=== PATIENT | female | born 1960 | race Caucasian/White ===

== ENCOUNTER → 2016-12-02 | Outpatient (CLI) | payer BC ==
[~2016-12-02] MED LIST: CRDCD180 PO; CRG125 PO; IBUP-1459 PO; LINA1CAP PO; PANT40TA2 PO; RANI300T2 PO
--- NOTE | 2016-12-02 10:25 | DIAGNOSTIC IMAGING REPORT ---
ABDOMINAL ULTRASOUND COMPLETE HISTORY: Generalized abdominal pain.. COMPARISON: Abdominal ultrasound 12/12/2008. FINDINGS: Pancreas: The pancreas demonstrates a normal echotexture. Liver: The liver is echogenic consistent with fatty change. Gallbladder: No gallbladder wall thickening. This is 1.6 cm stone within the gallbladder neck. CBD: Distended up to 1.5 cm. Kidneys: Increase in size in the 4 cm cyst within the right kidney. No hydronephrosis. Spleen: Mildly enlarged measuring 13.4 centers in length. Aorta: Normal in caliber. IVC: Patent. IMPRESSION: 1. Distended common bile duct measuring 1.5 cm. This could represent an obstructing stone or occult obstructing lesion. Consider CT or MRI follow-up for further evaluation. 2. A 1.6 cm stone within the gallbladder neck. No gallbladder wall thickening at this time. 3. Increase in size in a 4 cm right renal cyst. 4. Mild splenomegaly. 5. Hepatic steatosis. Electronically signed by: Johan Mancia M.D. 12/02/2016 10:24 AM Dictated Date/Time: 12/02/2016 10:17 AM
[2016-12-02 10:30] LABS: BASO % 1.6 %; BASO ABS # 0.09 K/uL (0-0.2); COMPLETE YES; EOS % 5.2 %; HEMATOCRIT 40.9 % (37-47); IG% 0.4 %; LYMPH % 25.5 %; LYMPH ABS # 1.42 K/uL (1.2-3.4); MEAN CORPUSCULAR HEMOGLOBIN 28.5 pg (25-34); MEAN CORPUSCULAR HGB CONC 32.8 g/dl (32-36); MEAN PLATELET VOLUME 10.4 fL (7.4-10.4); MONO % 11.3 %; PLATELET COUNT 351 K/uL (130-400); WHITE BLOOD COUNT 5.57 K/uL (4.8-10.8)
[2016-12-02 10:49] LABS: ALT/SGPT 24 U/L (12-78); AMYLASE 37 U/L (25-115); BLOOD UREA NITROGEN 16 mg/dl (7-18); CALCIUM 9.1 mg/dl (8.5-10.1); CARBON DIOXIDE 29 mmol/L (21-32); CHLORIDE 109 mmol/L (98-107); CREATININE 0.87 mg/dl (0.60-1.20); GLUCOSE 105 mg/dl (70-99); POTASSIUM 4.2 mmol/L (3.5-5.1); SODIUM 143 mmol/L (136-145)
[2016-12-02 10:52] LABS: ALB/GLOB RATIO 1.1 (0.9-2); ALKALINE PHOSPHATASE 116 U/L (45-117); AST/SGOT 14 U/L (15-37)
--- NOTE | 2016-12-02 11:03 | DIAGNOSTIC IMAGING REPORT ---
DOUBLE CONTRAST UPPER GI SERIES CLINICAL HISTORY: Nausea. Gastroesophageal reflux disease. COMPARISON STUDY: Abdominal ultrasound dated 12/02/2016. TECHNIQUE: A standard air contrast upper GI series was performed. Spot images of the esophagus and stomach were obtained in multiple obliquities both upright and prone. FINDINGS: The patient swallowed barium without difficulty. The esophagus is structurally normal without evidence of intrinsic or extrinsic mass. The esophageal mucosal pattern is normal. No gastroesophageal reflux was elicited by having the patient perform the Valsalva maneuver. The gastroesophageal junction distends normally. There is a small sliding hiatal hernia. The stomach stomach is otherwise normal in configuration and demonstrates normal distensibility. No mass or ulceration is identified. There was no evidence of gastritis. The duodenal bulb and sweep are unremarkable. Tiny small bowel diverticula are suggested in the imaged jejunum. Fluoroscopy time: 2.2 minutes. Fluoroscopic images: 23 IMPRESSION: Small hiatal hernia. Otherwise unremarkable fluoroscopic upper GI assessment. Electronically signed by: Michael Escobar M.D. 12/02/2016 11:02 AM Dictated Date/Time: 12/02/2016 11:00 AM
== END | disposition home or self-care (01) ==
LOC: C.ULTR 09:16
PROVIDERS: ATTEND Physician Assistant
DX: R10.13 Epigastric pain (principal); R11.0 Nausea; K80.20 Calculus of gallbladder without cholecystitis without obstruction; N28.1 Cyst of kidney, acquired; K76.0 Fatty (change of) liver, not elsewhere classified

== ENCOUNTER → 2016-12-08 | Outpatient (CLI) | payer BC ==
--- NOTE | 2016-12-08 09:44 | DIAGNOSTIC IMAGING REPORT ---
ABDOMEN CT WITHOUT CONTRAST CT DOSE: 1066.62 mGy.cm HISTORY: PAIN UPPER ABDOMEN TECHNIQUE: Multiaxial CT images of the abdomen were performed without contrast. COMPARISON STUDY: Abdominal ultrasound 12/02/2016. FINDINGS: The lung bases are clear. No fractures within the visualized osseous structures. Evaluation for a mass is suboptimal due to the lack of intravenous contrast. However, the unenhanced liver, spleen, adrenal glands, and pancreas appear unremarkable. The common bile duct appears normal in caliber. There is a 1.8 cm gallstone within the body of the gallbladder. No gallbladder wall thickening. No evidence for gallstone at the neck of the gallbladder. No retroperitoneal lymphadenopathy. Residual barium within the colon. Multiple colonic diverticula. Normal appendix. No renal stones or hydronephrosis. A 3.7 cm hypodense lesion within the lower pole of the right kidney. This is incompletely characterize on this noncontrast study but favors a cyst. IMPRESSION: 1. Cholelithiasis. No gallbladder wall thickening. 2. Common bile duct appears to be normal in caliber. 3. Suboptimal evaluation for a pancreatic mass due to the lack of intravenous contrast. However, no definite masses identified. 4. A 3.7 cm right renal cyst. 5. Colonic diverticulosis. Electronically signed by: Johan Mancia M.D. 12/08/2016 9:43 AM Dictated Date/Time: 12/08/2016 9:28 AM
== END | disposition home or self-care (01) ==
LOC: C.CTS 08:24
PROVIDERS: ATTEND Physician Assistant
DX: R10.9 Unspecified abdominal pain (principal); R93.8 Abnormal findings on diagnostic imaging of other specified body structures; K80.20 Calculus of gallbladder without cholecystitis without obstruction; N28.1 Cyst of kidney, acquired; K57.92 Diverticulitis of intestine, part unspecified, without perforation or abscess without bleeding

== ENCOUNTER 2016-12-09 18:49 | Emergency (ER) | payer BC ==
[~2016-12-09] VITALS: Ht 162.6 cm; Wt 109.8 kg
[~2016-12-09 18:49] MED LIST changes: -CRG125 PO; -IBUP-1459 PO; -LINA1CAP PO; -PANT40TA2 PO; -RANI300T2 PO
[2016-12-09 18:51] VITALS: Ht 162.6 cm; Wt 109.8 kg
[2016-12-09] MEDS ORDERED: CRG125 PO (19:06)
[2016-12-09] MEDS ORDERED: LINA1CAP PO (19:06)
[2016-12-09] MEDS ORDERED: PANT40TA2 PO (19:06)
[2016-12-09] MEDS ORDERED: MoRPHine SULFATE 4 MG/ML 1 ML CARP\\VIAL IV STA (19:07)
[2016-12-09] MEDS ORDERED: ONDANSETRON INJ 2 MG/ML 2 ML VIAL IV STA (19:07)
[2016-12-09] MEDS ORDERED: IBUP-1459 PO (19:21)
[2016-12-09] MEDS ORDERED: RANI300T2 PO (19:21)
[2016-12-09 19:37] LABS: BASO % 0.4 %; BASO ABS # 0.06 K/uL (0-0.2); COMPLETE YES; EOS % 1.3 %; HEMATOCRIT 42.1 % (37-47); IG% 0.1 %; LYMPH ABS # 1.01 K/uL (1.2-3.4); MEAN CELL VOLUME 86.1 fL (80-100); MEAN CORPUSCULAR HEMOGLOBIN 28.8 pg (25-34); MEAN CORPUSCULAR HGB CONC 33.5 g/dl (32-36); MEAN PLATELET VOLUME 10.3 fL (7.4-10.4); MONO % 10.1 %; NEUT % 81.1 %; PLATELET COUNT 317 K/uL (130-400); RED BLOOD COUNT 4.89 M/uL (4.2-5.4); WHITE BLOOD COUNT 14.51 K/uL (4.8-10.8)
--- NOTE | 2016-12-09 20:04 | DIAGNOSTIC IMAGING REPORT ---
CHEST AND ABDOMEN 2 VIEWS HISTORY: Generalized abdominal pain. COMPARISON: Abdomen and pelvis CT 12/08/2016. FINDINGS: The lungs are clear. The heart is normal in size. Residual barium within multiple scattered colonic diverticula from the recent CT examination. Moderate stool seen within the proximal colon. No dilated loops of small bowel to suggest an obstruction. S-shaped scoliosis of the thoracolumbar spine. No pneumoperitoneum. No pneumatosis. No renal calculi. IMPRESSION: No acute cardiopulmonary process. No evidence for bowel obstruction. Moderate stool within the proximal colon. Electronically signed by: Johan Mancia M.D. 12/09/2016 8:03 PM Dictated Date/Time: 12/09/2016 8:01 PM
--- NOTE | 2016-12-09 20:22 | DIAGNOSTIC IMAGING REPORT ---
ABDOMINAL ULTRASOUND, RIGHT UPPER QUADRANT HISTORY: Right upper quadrant abdominal pain. eval for cholecystitis. COMPARISON: Abdominal ultrasound 12/02/2016. FINDINGS: Pancreas: The pancreas demonstrates a normal echotexture. Liver: The liver is echogenic consistent with fatty change. Gallbladder: A 2.5 cm gallstone. No gallbladder wall thickening. Negative sonographic Adams's sign. CBD: 4 mm. Right kidney: No hydronephrosis. A 3.6 cm cyst is again noted. IMPRESSION: 1. Cholelithiasis. No gallbladder wall thickening. 2. Normal caliber common bile duct. 3. Hepatic steatosis. Electronically signed by: Johan Mancia M.D. 12/09/2016 8:21 PM Dictated Date/Time: 12/09/2016 8:19 PM
[2016-12-09 20:23] LABS: BUN/CREATININE RATIO 13.4 (10-20); CREATININE 0.91 mg/dl (0.60-1.20)
[2016-12-09 20:39] LABS: POTASSIUM 4.2 mmol/L (3.5-5.1)
[2016-12-09 21:02] LABS: MANUAL MICROSCOPIC REQUIRED? YES; URINE APPEARANCE CLOUDY (CLEAR); URINE BILIRUBIN NEG (NEG); URINE COLOR YELLOW; URINE NITRITE NEG (NEG); URINE PH 5.5 (4.5-7.5); URINE SPECIFIC GRAVITY 1.025 (1.000-1.030); UROBILINOGEN NEG (NEG)
[2016-12-09 21:13] LABS: REVIEW REQ? NO
[2016-12-09 21:16] LABS: URINE RBC 0-4 /hpf (0-4)
[2016-12-09 21:18] LABS: URINE BACTERIA NEG (NEG); URINE WBC 0 /hpf (0-5)
[2016-12-09 21:19] LABS: URINE AMORPHOUS SEDIMENT PRESENT (NONE PRSENT)
[2016-12-09 22:00] VITALS: BP 152/93; PULSE 91; TEMP 37; O2SAT 98
--- NOTE | 2016-12-10 01:48 | EMERGENCY ROOM VISIT NOTE ---
History Report prepared by Jane: Lupe Gao Under the Supervision of: Dr. Alonso Aguirre M.D. First contact with patient: 18:57 Chief Complaint: ABDOMINAL PAIN Stated Complaint: ABD PAIN History of Present Illness The patient is a 56 year old female who presents to the Emergency Room with complaints of constant epigastric and lower abdominal pain since last night. The patient reports that she developed some nausea around Mother's Day a couple of weeks ago. Since then she has had intermittent lower abdominal pains for the past 2 weeks. Last night her pain worsened and it has been constant. She has epigastric pain that is worse with standing. The patient describes her pain as sharp and rates it as an 8/10 in severity. Her pain is not worsened after eating. She denies vomiting, fever, and urinary symptoms. The patient has been constipated for the past few days with the exception of some diarrhea yesterday morning that has resolved. She had a small bowel movement this morning. She had a CT scan of her abdomen yesterday and reports that her pain worsened after the scan. Source of History: patient Onset: a couple of weeks ago Position: abdomen Symptom Intensity: 8/10 Quality: sharp Timing: constant Modifying Factors (Worsening): other (standing) Associated Symptoms: No fevers, No vomiting, No urinary symptoms Note: Pt reports constipation. Review of Systems See HPI for pertinent positives & negatives. A total of 10 systems reviewed and were otherwise negative. Past Medical & Surgical Medical Problems: (1) Hypertension, uncontrolled Family History Heart disease Social History Smoking Status: Never Smoker Alcohol Use: none Marital Status: Housing Status: lives with family Occupation Status: employed Current/Historical Medications Scheduled Carvedilol (Carvedilol), 12.5 MG PO BID Linaclotide (Linzess), 145 MG PO DAILY Pantoprazole (Pantoprazole Sodium), 40 MG PO DAILY Ranitidine (Zantac), 300 MG PO HS Scheduled PRN Ibuprofen (Motrin), 400 MG PO Q6H PRN for Pain Allergies Coded Allergies: Aspirin (Unverified Allergy, Mild, 02/19/15) Physical Exam Vital Signs Date Time Temp Pulse Resp B/P (MAP) Pulse Ox O2 Delivery O2 Flow Rate FiO2 12/09/16 22:00 37.0 91 18 152/93 98 12/09/16 18:51 37.0 91 18 152/93 98 Room Air Physical Exam Constitutional: Vital signs reviewed. Eyes: Pupils are equal round reactive to light. Conjunctiva are noninjected. ENT: Pharynx is clear without erythema or exudate. Mucous membranes are moist. Neck supple without meningeal signs. Respiratory: Clear to auscultation bilaterally. Breath sounds are equal bilaterally. Cardiovascular: Regular rate and rhythm. No rubs or gallops. GI: Soft, nondistended. Epigastric and lower abdominal tenderness. No guarding, no Adams's. Bowel sounds are present. Musculoskeletal: No peripheral edema. No lower extremity tenderness. Integumentary: No cyanosis. Neurological: The patient is awake and alert. No focal deficits. Psychiatric: Normal affect. Medical Decision & Procedures ER Provider Diagnostic Interpretation: Radiology results as stated below per my review and the radiologist's interpretation: ABDOMINAL ULTRASOUND, RIGHT UPPER QUADRANT HISTORY: Right upper quadrant abdominal pain. eval for cholecystitis. COMPARISON: Abdominal ultrasound 12/02/2016. FINDINGS: Pancreas: The pancreas demonstrates a normal echotexture. Liver: The liver is echogenic consistent with fatty change. Gallbladder: A 2.5 cm gallstone. No gallbladder wall thickening. Negative sonographic Adams's sign. CBD: 4 mm. Right kidney: No hydronephrosis. A 3.6 cm cyst is again noted. IMPRESSION: 1. Cholelithiasis. No gallbladder wall thickening. 2. Normal caliber common bile duct. 3. Hepatic steatosis. Electronically signed by: Johan Mancia M.D. 12/09/2016 8:21 PM Dictated Date/Time: 12/09/2016 8:19 PM CHEST AND ABDOMEN 2 VIEWS HISTORY: Generalized abdominal pain. COMPARISON: Abdomen and pelvis CT 12/08/2016. FINDINGS: The lungs are clear. The heart is normal in size. Residual barium within multiple scattered colonic diverticula from the recent CT examination. Moderate stool seen within the proximal colon. No dilated loops of small bowel to suggest an obstruction. S-shaped scoliosis of the thoracolumbar spine. No pneumoperitoneum. No pneumatosis. No renal calculi. IMPRESSION: No acute cardiopulmonary process. No evidence for bowel obstruction. Moderate stool within the proximal colon. Electronically signed by: Johan Mancia M.D. 12/09/2016 8:03 PM Dictated Date/Time: 12/09/2016 8:01 PM Laboratory Results 12/09/16 19:30 Red Blood Count 4.89, Mean Corpuscular Volume 86.1, Mean Corpuscular Hemoglobin 28.8, Mean Corpuscular Hemoglobin Concent 33.5, Mean Platelet Volume 10.3, Neutrophils (%) (Auto) 81.1, Lymphocytes (%) (Auto) 7.0, Monocytes (%) (Auto) 10.1, Eosinophils (%) (Auto) 1.3, Basophils (%) (Auto) 0.4, Neutrophils # (Auto ) 11.76, Lymphocytes # (Auto) 1.01, Monocytes # (Auto) 1.47, Eosinophils # (Auto ) 0.19, Basophils # (Auto) 0.06 12/09/16 19:30 Test 12/09/16 19:30 White Blood Count 14.51 K/uL (4.8-10.8) Red Blood Count 4.89 M/uL (4.2-5.4) Hemoglobin 14.1 g/dL (12.0-16.0) Hematocrit 42.1 % (37-47) Mean Corpuscular Volume 86.1 fL (80-100) Mean Corpuscular Hemoglobin 28.8 pg (25-34) Mean Corpuscular Hemoglobin Concent 33.5 g/dl (32-36) Platelet Count 317 K/uL (130-400) Mean Platelet Volume 10.3 fL (7.4-10.4) Neutrophils (%) (Auto) 81.1 % Lymphocytes (%) (Auto) 7.0 % Monocytes (%) (Auto) 10.1 % Eosinophils (%) (Auto) 1.3 % Basophils (%) (Auto) 0.4 % Neutrophils # (Auto) 11.76 K/uL (1.4-6.5) Lymphocytes # (Auto) 1.01 K/uL (1.2-3.4) Monocytes # (Auto) 1.47 K/uL (0.11-0.59) Eosinophils # (Auto) 0.19 K/uL (0-0.5) Basophils # (Auto) 0.06 K/uL (0-0.2) RDW Standard Deviation 42.2 fL (36.4-46.3) RDW Coefficient of Variation 13.4 % (11.5-14.5) Immature Granulocyte % (Auto) 0.1 % Immature Granulocyte # (Auto) 0.02 K/uL (0.00-0.02) Urine Color YELLOW Urine Appearance CLOUDY (CLEAR) Urine pH 5.5 (4.5-7.5) Urine Specific Volcano 1.025 (1.000-1.030) Urine Protein NEG (NEG) Urine Glucose (UA) NEG (NEG) Urine Ketones TRACE (NEG) Urine Occult Blood TRACE (NEG) Urine Nitrite NEG (NEG) Urine Bilirubin NEG (NEG) Urine Urobilinogen NEG (NEG) Urine Leukocyte Esterase NEG (NEG) Urine RBC 0-4 /hpf (0-4) Urine WBC 0 /hpf (0-5) Urine Epithelial Cells 5-10 /lpf (0-5) Urine Amorphous Sediment PRESENT (NONE PRSENT) Urine Bacteria NEG (NEG) Anion Gap 9.0 mmol/L (3-11) Est Creatinine Clear Calc Drug Dose 83.6 ml/min Estimated GFR () 81.7 Estimated GFR (Non- 70.5 BUN/Creatinine Ratio 13.4 (10-20) Calcium Level 9.0 mg/dl (8.5-10.1) Total Bilirubin 0.7 mg/dl (0.2-1) Direct Bilirubin 0.2 mg/dl (0-0.2) Aspartate Amino Transf (AST/SGOT) 11 U/L (15-37) Alanine Aminotransferase (ALT/SGPT) 23 U/L (12-78) Alkaline Phosphatase 116 U/L (45-117) Total Protein 7.5 gm/dl (6.4-8.2) Albumin 3.8 gm/dl (3.4-5.0) Lipase 106 U/L (73-393) Laboratory results as reviewed by me. Medications Administered Medications (Trade) Dose Ordered Sig/Yaya Route Start Time Stop Time Status Last Admin Dose Admin Morphine Sulfate (MoRPHine SULFATE INJ) 4 mg ONE STAT IV 12/09/16 19:07 12/09/16 19:09 DC 12/09/16 19:32 4 MG Ondansetron HCl (Zofran Inj) 4 mg NOW STAT IV 12/09/16 19:07 12/09/16 19:09 DC 12/09/16 19:32 4 MG ED Course 1857: The patient was evaluated in room A10. A complete history and physical exam was performed. 1907: Zofran 4 mg IV, Morphine sulfate 4 mg IV 2108: I reevaluated the patient. She is feeling much better. She has minimal tenderness in the suprapubic region, but is otherwise nontender. 2133: I reassessed the patient at this time. She is feeling better and resting comfortably. She has no pain at this time. She had a small bowel movement. She was prescribed Linzess by her doctor but has not picked it up yet. I discussed the results and treatment plan with the patient. I answered all pertaining questions that she had. She expressed understanding and verbalized agreement. The patient will be discharged home. Medical Decision This is a 56-year-old female who presents with abdominal pain. Differential diagnosis includes choledocholithiasis, pancreatitis, cholecystitis, gastritis, constipation, fecal impaction. I did perform a limited focused review of portions of the patient's old chart on the electronic medical record. The patient had a CT of the abdomen and pelvis yesterday which showed cholelithiasis without wall thickening. She also had diverticulosis. She had an US on December 02 which showed a distended common bile duct. LFTs were normal on the . Medication Reconciliation: I attest that I have personally reviewed the patient' s current medication list. Blood Pressure Screening: Patient was found to have an elevated blood pressure and was referred to their primary doctor for recheck and further treatment. I did evaluate the patient as noted above. The patient has had abdominal pain for the past several weeks. It became more persistent yesterday. She also complains of constipation. She did have a CT scan yesterday as described above which did not show any signs of diverticulitis or acute process. On exam she is tender in the lower abdomen diffusely as well as the epigastric region. IV access was established. I did treat the patient with IV morphine and Zofran. I did order and personally review the patient's abdominal and chest x-rays as described above. She appears to have some fecal retention but no signs of obstruction. I did order and review the patient's blood work as noted in the electronic medical record. Her white blood cell count is elevated which is a nonspecific finding. LFTs and lipase were unremarkable. I did order an ultrasound of the right upper quadrant due to her history of cholelithiasis and epigastric tenderness. I did review the images myself as well as the radiology report as described above. She has cholelithiasis without signs of cholecystitis. I did reassess the patient. I did discuss the test results with her. She is feeling much better at this time and has no significant tenderness on examination. She was given a soapsuds enema and had a bowel movement here. She states she was given a prescription for constipation by her primary care doctor but she has not filled it yet. She was advised to use this prescription and follow up with her doctor. She was discharged in good condition. Impression Primary Impression: Lower abdominal pain Additional Impressions: Cholelithiasis without cholecystitis Constipation Leukocytosis Scribe Attestation The scribe's documentation has been prepared under my direct and personally reviewed by me in its entirety. I confirm that the note above accurately reflects all work, treatment, procedures, and medical decision making performed by me. Departure Information Dispostion Home / Self-Care Referrals Nirmala Gonzalez (PCP) Forms Call Back Authorization, HOME CARE DOCUMENTATION FORM, IMPORTANT VISIT INFORMATION Patient Instructions Abdominal Pain, My [facility] Additional Instructions You have been examined and treated today on an emergency basis only. This is not a substitute for, or an effort to provide, complete comprehensive medical care. It is impossible to recognize and treat all injuries or illnesses in a single emergency department visit. It is therefore important that you follow up closely with your physician. Call as soon as possible for an appointment. Return for worsening symptoms or if you develop fever, vomiting, or any other concerning symptoms. Problem Qualifiers Additional Impressions: Constipation Constipation type: unspecified constipation type Qualified Codes: K59.00 - Constipation, unspecified Leukocytosis Leukocytosis type: unspecified Qualified Codes: D72.829 - Elevated white blood cell count, unspecified
== END 2016-12-09 22:09 | disposition home or self-care (01) ==
LOC: C.EDB 18:50 → C.EDA 22:09
DX: R10.30 Lower abdominal pain, unspecified (principal); K80.20 Calculus of gallbladder without cholecystitis without obstruction; K59.00 Constipation, unspecified; D72.829 Elevated white blood cell count, unspecified; I10 Essential (primary) hypertension

== ENCOUNTER → 2017-02-21 | Outpatient (CLI) | payer BC ==
[~2017-02-21] MED LIST changes: -CRDCD180 PO; +CRG125 PO; +IBUP-1459 PO; +LINA1CAP PO; +PRT/40 PO; +RANI300T2 PO
--- NOTE | 2017-02-22 14:35 | MAMMOGRAPHY REPORT ---
BILATERAL DIGITAL SCREENING MAMMOGRAM TOMOSYNTHESIS WITH CAD: 02/21/2017 CLINICAL HISTORY: Routine screening. TECHNIQUE: Breast tomosynthesis in addition to standard 2D mammography was performed. Current study was also evaluated with a Computer Aided Detection (CAD) system. COMPARISON: Comparison is made to exams dated: 02/12/2016 mammogram, 02/10/2015 mammogram, 02/07/2014 ishaan mogram, 01/31/2013 mammogram, 01/31/2012 mammogram, and 01/25/2011 mammogram - [facility]. BREAST COMPOSITION: There are scattered areas of fibroglandular density in both breasts. FINDINGS: There are a few benign coarse calcifications in the breasts. No suspicious mass, outdoor landscape architect ural distortion or cluster of suspicious microcalcifications is seen. IMPRESSION: ACR BI-RADS CATEGORY 1: NEGATIVE There is no mammographic evidence of malignancy. A 1 year screening mammogram is recommended. The pa tient will receive written notification of the results. Approximately 10% of breast cancers are not detected with mammography. A negative mammographic report should not delay biopsy if a clinically suggestive mass is present. Darya Gómez M.D. ay/:02/21/2017 15:15:49 Wet Room Supervisor: Mary WILKERSON(R)(M), [facility] letter sent: Normal 1/2 BI-RADS Code: ACR BI-RADS Category 1: Negative
== END | disposition home or self-care (01) ==
LOC: C.MAMM 13:13
PROVIDERS: ATTEND Family Medicine
DX: Z12.31 Encounter for screening mammogram for malignant neoplasm of breast (principal)

== ENCOUNTER → 2018-02-22 | Outpatient (CLI) | payer OTHER ==
[~2018-02-22] MED LIST changes: +CHOL1TAB42 PO; +CYAN10005 PO; +HYDR-5688 PO; +LORA-741 PO; +MISCTAB78 PO; -PRT/40 PO
--- NOTE | 2018-02-23 15:40 | MAMMOGRAPHY REPORT ---
BILATERAL DIGITAL SCREENING MAMMOGRAM TOMOSYNTHESIS WITH CAD: 02/22/2018 CLINICAL HISTORY: Routine screening. Patient has no complaints. TECHNIQUE: The study was acquired using full field digital technology and interpreted from soft copy. Breast tomosynthesis in addition to standard 2D mammography was performed. Current study was also ev aluated with a Computer Aided Detection (CAD) system. COMPARISON: Comparison is made to exams dated: 02/21/2017 mammogram, 02/12/2016 mammogram, 02/10/2015 ishaan mogram, 02/07/2014 mammogram, 01/31/2013 mammogram, and 01/31/2012 mammogram - [facility]. BREAST COMPOSITION: There are scattered areas of fibroglandular density in both breasts. FINDINGS: The parenchymal pattern is similar to prior exams. Stable coarse calcifications. No developing mass, architectural distortion or cluster of suspicious microcalcifications is seen in either breast. No suspicious mass, architectural distortion or cluster of microcalcifications is seen. IMPRESSION: ACR BI-RADS CATEGORY 2: BENIGN There is no mammographic evidence of malignancy. A 1 year screening mammogram is recommended.( 019) The patient will receive written notification of the results. Some breast cancers are not detected with mammography. A negative mammographic report should not satish y biopsy if a clinically suggestive mass is present. Darya Gómez M.D. ay/:02/22/2018 15:53:06 Salesperson Flowers: RT Heath(Sarkis)(M)(BD), [facility] letter sent: Normal 1/2 BI-RADS Code: ACR BI-RADS Category 2: Benign
== END | disposition home or self-care (01) ==
LOC: C.MAMM 09:45
PROVIDERS: ATTEND Physician Assistant
DX: Z12.31 Encounter for screening mammogram for malignant neoplasm of breast (principal)